=== PATIENT | female | born 1995 | race Two or more races ===

== ENCOUNTER 2018-10-24 11:51 | Emergency (ER) | payer SELFPAY ==
--- NOTE | 2018-10-24 12:42 | ER Document Report ---
ED Medical Screen (RME) - General Chief Complaint: Vag Bleeding, +preg <12wks Stated Complaint: VAGINAL BLEEDING Time Seen by Provider: 10/24/18 12:36 Notes: 23-year-old female patient is about 2-1/2 months she thinks. She has had pelvic cramps for a few days, with some spotting noted on Wednesday and again today. She is A0, she found that she was in August when she went to an emergency room for spotting and did have an ultrasound done. She has since moved to this area and has not received any care. I have greeted and performed a rapid initial assessment of this patient. A comprehensive ED assessment and evaluation of the patient, analysis of test results and completion of the medical decision making process will be conducted by additional ED providers. TRAVEL OUTSIDE OF THE [place] IN LAST 30 DAYS: No - Related Data Allergies/Adverse Reactions: No Known Allergies Allergy (Unverified 10/24/18 11:53) Physical Exam - Vital signs Vitals: Temp Pulse Resp BP Pulse Ox 98.4 F 68 16 112/60 100 10/24/18 12:01 10/24/18 12:01 10/24/18 12:01 10/24/18 12:01 10/24/18 12:01 Course - Vital Signs Vital signs: Temp Pulse Resp BP Pulse Ox 98.4 F 68 16 112/60 100 10/24/18 12:01 10/24/18 12:01 10/24/18 12:01 10/24/18 12:01 10/24/18 12:01
[2018-10-24 13:26] LABS: APPEARANCE,URINE CLOUDY; BILIRUBIN,URINE NEGATIVE (NEGATIVE); COLOR,URINE YELLOW; GLUCOSE, URINE NEGATIVE (NEGATIVE); KETONES,URINE TRACE mg/dL (NEGATIVE); LEUKOCYTE ESTERASE,URINE SMALL (NEGATIVE); NITRITE,URINE NEGATIVE (NEGATIVE); PROTEIN,URINE 30 mg/dL (NEGATIVE); URINE SPECIFIC GRAVITY 1.027
[2018-10-24 13:28] LABS: ABSOLUTE EOSINOPHILS # (AUTO) 0.1 10^3/uL (0.0-0.6); ABSOLUTE LYMPHOCYTES (AUTO) 1.7 10^3/uL (0.5-4.7); ABSOLUTE MONOCYTES (AUTO) 0.5 10^3/uL (0.1-1.4); ABSOLUTE NEUT (AUTO) 6.8 10^3/uL (1.7-8.2); BASOPHILS % (AUTO) 0.2 % (0-2); EOSINOPHILS % (AUTO) 0.6 % (0-6); HEMATOCRIT 40.1 % (36.0-47.0); HEMOGLOBIN 13.8 g/dL (12.0-15.5); LYMPHOCYTES % (AUTO) 18.5 % (13-45); MEAN CORPUSCULAR HEMOGLOBIN 30.4 pg (27.0-33.4); MEAN CORPUSCULAR HGB CONC 34.3 g/dL (32.0-36.0); MEAN CORPUSCULAR VOLUME 89 fl (80-97); MONOCYTES % (AUTO) 5.4 % (3-13); PLATELET COUNT 271 10^3/uL (150-450); RED BLOOD COUNT 4.52 10^6/uL (3.72-5.28); RED CELL DISTRIBUTION WIDTH 13.1 % (11.5-14.0); SEGMENTED NEUTROPHILS % (AUTO) 75.3 % (42-78); TOTAL CELLS COUNTED % (AUTO) 100 %
--- NOTE | 2018-10-24 14:39 | ER Document Report ---
ED General - General Chief Complaint: Vag Bleeding, +preg <12wks Stated Complaint: VAGINAL BLEEDING Time Seen by Provider: 10/24/18 12:36 Notes: 23-year-old A0 female currently approximately 2-1/2 months presents to the emergency department for pelvic cramps for a few days with some spotting noted on Wednesday and again today. Interpretation service used. She found that she was in August when she went to an emergency room for spotting and did have an ultrasound done. She has since moved to this area and has not received any care. She states that the symptoms started last night and she noticed blood in her urine only when peeing. She also complains of cramping, dysuria, urinary frequency, and urgency. No previous history of urinary tract infection. She denies fevers, endorses chills, endorses nausea, denies morning sickness. She denies any vaginal bleeding or abnormal discharge. No other symptoms TRAVEL OUTSIDE OF THE [place] IN LAST 30 DAYS: No - Related Data Allergies/Adverse Reactions: No Known Allergies Allergy (Unverified 10/24/18 11:53) Past Medical History - General Information source: Patient - Social History Smoking Status: Never Smoker Chew tobacco use (# tins/day): No Frequency of alcohol use: None Drug Abuse: None Family History: None Patient has suicidal ideation: No Patient has homicidal ideation: No Renal/ Medical History: Denies: Hx Peritoneal Dialysis Review of Systems - Review of Systems Constitutional: See HPI EENT: See HPI Cardiovascular: See HPI Respiratory: See HPI Gastrointestinal: See HPI Genitourinary: See HPI Female Genitourinary: No symptoms reported Musculoskeletal: No symptoms reported Skin: No symptoms reported Hematologic/Lymphatic: No symptoms reported Neurological/Psychological: No symptoms reported Physical Exam - Vital signs Vitals: Temp Pulse Resp BP Pulse Ox 98.4 F 68 16 112/60 100 10/24/18 12:01 10/24/18 12:01 10/24/18 12:10/24/18 12:10/24/18 12:01 - Notes Notes: Reviewed vital signs and nursing note as charted by RN. CONSTITUTIONAL: Well-appearing, well-nourished, acting appropriately for age HEAD: Normocephalic, atraumatic, no swelling EYES: PERRL, Conjunctivae clear, no drainage, EOMI, no scleral icterus ENT: External ears without lesions, External auditory canal is patent, no tonsillar hypertrophy, airway patent, mucous membranes pink and moist NECK: Supple, no cervical lymphadenopathy, no masses CARD: Regular rate and rhythm, no murmurs, no rubs, no gallops, capillary refill < 2 seconds, symmetric pulses RESP: The lungs are clear to auscultation bilaterally, no wheezing, no rales, no rhonchi. Respiratory rate and effort are normal, normal chest excursion. No respiratory distress, no retractions, no stridor, no nasal flaring, no accessory muscle use. ABD/GI: Normal bowel sounds, non-distended, soft, suprapubic tenderness palpation, no rebound, no guarding, no palpable organomegaly EXT: Normal ROM in all joints, non-tender to palpation, no effusions, no edema SKIN: Normal color for age and race, warm, dry, good turgor, no acute lesions noted NEURO: No facial asymmetry, moves all extremities equally, motor and sensory function intact Course - Re-evaluation Re-evalutation: 10/24/18 16:37 Well-appearing 23-year-old female presents to the emergency department for complaint of vaginal bleeding. After clarification with translation services she notes hematuria but no vaginal bleeding. Transvaginal ultrasound completed which shows a live intrauterine approximately 11 weeks 0 days gestation. No evidence of subchorionic bleed. Urinalysis was a poor sample but did have leuk esterase present. Although the urinalysis was an unreliable sample the patient has classic symptoms for a urinary tract infection including suprapubic tenderness so at this point I am going to treat patient for UTI in light of her . So, patient does not have any care and does not have insurance so she will most likely be lost to follow-up. At this point I am not concerned for ectopic . Patient will be discharged with a prescription for Keflex 500 mg to be taken twice a day for 7 days, her first dos e will be given here. - Vital Signs Vital signs: Temp Pulse Resp BP Pulse Ox 98.4 F 68 16 112/60 100 10/24/18 12:01 10/24/18 12:01 10/24/18 12:01 10/24/18 12:01 10/24/18 12:01 - Laboratory Result Diagrams: 10/24/18 13:04 Laboratory results interpreted by me: 10/24/18 10/24/18 13:00 13:04 Beta HCG, Quant 310832.00 H Urine Protein 30 H Urine Ketones TRACE H Urine Urobilinogen 2.0 H Ur Leukocyte Esterase SMALL H Urine Ascorbic Acid 40 H Discharge - Discharge Clinical Impression: Urinary tract infection affecting care of mother in first trimester, antepartum Condition: Good Disposition: HOME, SELF-CARE Instructions: Cephalexin ([facility]), Urinary Tract Infection ([facility]) Additional Instructions: You are seen in the emergency department this afternoon for urinary tract infection. It is important to take the medications that were prescribed until they are gone. This includes even if you do not have symptoms. Also, we have given you the information for an sports marketing coordinator who you can call to attempt to obtain care. Also, please start taking a vitamin. If you have severe abdominal pain, cramping, heavy vaginal bleeding, fevers, you pass out, or have any other concerning symptoms please immediately return to the emergency room. Referrals: GARCÍA NAIR MD [ACTIVE STAFF] - Follow up as needed
--- NOTE | 2018-10-24 15:28 | RADIOLOGY REPORT (SQ) ---
EXAM DESCRIPTION: U/S [id number] TRNABD 1GES W/ODOP COMPLETED DATE/TIME: 10/24/2018 3:11 pm REASON FOR STUDY: 2.5 months?, spotting, cramping COMPARISON: None. TECHNIQUE: Transabdominal static and realtime grayscale images acquired of the pelvis. Additional se lected spectral and color Doppler images recorded. All images stored on PACs. bHCG: None available CLINICAL DATES: None available LIMITATIONS: None. FINDINGS: FETUS: Single Living intrauterine . ULTRASOUND EGA: 11 weeks 0 days ULTRASOUND YOBANY: 05/15/2019 EFW: Not applicable less than 20 weeks. CRL: 3.35 cm FHR: 157 beats per minute. SURVEY: Too early to assess. AMNIOTIC FLUID: Adequate amount. PLACENTA: Not yet developed due to early gestation. SUBCHORIONIC BLEED: No SIZE OF BLEED: Not applicable. UTERUS: No masses. No anomalies. Uterus is 10 x 7 x 8 cm in size CERVICAL LENGTH: 3.2 cm Closed. RIGHT ADNEXA: Right ovary not well seen due to limited acoustic window and pelvic bowel gas. No adnexal free fluid. No adnexal masses. LEFT ADNEXA: Normal ovary with normal vascular flow. Left ovary 2.7 x 2.3 x 1.3 cm in size. No adnexal free fluid. No adnexal masses. FREE FLUID: None. OTHER: No other significant finding. IMPRESSION: LIVING INTRAUTERINE . EGA 11 weeks 0 days Trimester of : First - 0 to 13 weeks. TECHNICAL DOCUMENTATION: JOB ID: [id number] [employer]- All Rights Reserved Reading location - IP/workstation name: ON LICENSE OF [facility]
[2018-10-24] MEDS ORDERED: CEPHALEXIN 500 MG CAPSULE PO ONE (16:44)
[2018-10-24 16:57] VITALS: BP 99/65
== END 2018-10-24 16:58 | disposition home or self-care (01) ==
LOC: ER 11:51
DX: O23.41 Unspecified infection of urinary tract in pregnancy, first trimester (principal); O46.91 Antepartum hemorrhage, unspecified, first trimester; O26.891 Other specified pregnancy related conditions, first trimester; R10.9 Unspecified abdominal pain; R30.0 Dysuria; R35.0 Frequency of micturition; R39.15 Urgency of urination; Z3A.12 12 weeks gestation of pregnancy
CPT/HCPCS: 36415; 76801; 81001; 84702; 85025; 86900; 86901; 99284

== ENCOUNTER 2018-11-18 20:32 | Emergency (ER) | payer SELFPAY ==
[2018-11-18 21:13] LABS: APPEARANCE,URINE CLOUDY; BILIRUBIN,URINE NEGATIVE (NEGATIVE); COLOR,URINE YELLOW; GLUCOSE, URINE NEGATIVE (NEGATIVE); KETONES,URINE TRACE mg/dL (NEGATIVE); LEUKOCYTE ESTERASE,URINE LARGE (NEGATIVE); NITRITE,URINE NEGATIVE (NEGATIVE); PROTEIN,URINE NEGATIVE (NEGATIVE); URINE SPECIFIC GRAVITY 1.011; UROBILINOGEN,URINE NEGATIVE mg/dL (<2.0)
--- NOTE | 2018-11-19 01:06 | ER Document Report ---
HPI - HPI Patient complains to provider of: pain with urination Time Seen by Provider: 11/19/18 00:56 Pain Level: 5 Context: 23-year-old female presents to the emergency department for pain when urinating. Patient's [id number] was in the room acting as a infusion rn. Patient states that she has very strong pain at the end of urination, urinary frequency, urgency. Patient denies fevers but complains of chills. Patient states that her urine appears pink and is concerned there may be blood in it. Patient has no other complaints. - REPRODUCTIVE Reproductive: REPORTS: : Past Medical History - Social History Smoking Status: Never Smoker Family History: None Renal/ Medical History: Denies: Hx Peritoneal Dialysis Vertical Provider Document - CONSTITUTIONAL Notes: PHYSICAL EXAMINATION: Reviewed vital signs and charting by RN GENERAL: Alert, interacts well. No acute distress. HEAD: Normocephalic, atraumatic. EYES: Pupils equal, round. Extraocular movements intact. ENT: Oral mucosa moist, tongue midline. NECK: Full range of motion. Trachea midline. ABDOMEN: soft, non-tender. Non-distended. Bowel sounds present in all 4 quadrants. EXTREMITIES: Moves all 4 extremities spontaneously. No edema, No cyanosis. BACK: L CVAT NEUROLOGICAL: Alert and acting appropriately PSYCH: Normal affect, normal mood. SKIN: Warm, dry, normal turgor. No rashes or lesions noted. - INFECTION CONTROL TRAVEL OUTSIDE OF THE [place] IN LAST 30 DAYS: No Course - Re-evaluation Re-evalutation: 11/19/18 01:00 Well-appearing 4-month female presents with urinary symptoms. Urinalysis was positive for leuk esterase greater than 182 WBCs and blood. Patient did have some mild left CVA tenderness and clarified that her abdominal pain is only with urination. Most likely consistent with an acute uncomplicated cystitis. Plan is to treat her with Keflex 500 mg p.o. 1 time in the emergency department and sent her home with a prescription for Keflex 500 mg p.o. 2 times per day for 7 days. Patient is safe and stable for discharge home. Vital signs are stable. - Vital Signs Vital signs: Temp Pulse Resp BP Pulse Ox 97.8 F 80 12 109/64 100 11/18/18 20:59 11/18/18 20:59 11/18/18 20:59 11/18/18 20:59 11/18/18 20:59 - Laboratory Laboratory results interpreted by me: 11/18/18 20:35 Urine Ketones TRACE H Urine Blood LARGE H Ur Leukocyte Esterase LARGE H Discharge - Discharge Clinical Impression: Urinary tract infection affecting care of mother in second trimester, antepartum Condition: Good Disposition: HOME, SELF-CARE Instructions: Cephalexin ([facility]), Urinary Tract Infection ([facility]) Additional Instructions: Your urine shows findings consistent with a urinary tract infection. Please take all the antibiotics as directed even if your symptoms have improved. Please follow-up with your primary care physician as needed. Return to emergency room if you develop fever >101F, persistent vomiting, become lethargic, have severe pain in your sides, or any other symptoms that are concerning to you.
[2018-11-19] MEDS ORDERED: CEPHALEXIN 500 MG CAPSULE PO ONE (01:09)
[2018-11-19 01:25] VITALS: BP 112/68
== END 2018-11-19 01:23 | disposition home or self-care (01) ==
LOC: ER 20:32
DX: O23.42 Unspecified infection of urinary tract in pregnancy, second trimester (principal); Z3A.00 Weeks of gestation of pregnancy not specified
CPT/HCPCS: 81001; 99283